=== PATIENT | female | born 1985 | race African-American/Black ===

== ENCOUNTER 2017-07-12 12:03 | Emergency (ER) | payer OTHER ==
[~2017-07-12] VITALS: Ht 162.6 cm; Wt 58.0 kg
[~2017-07-12 12:03] MED LIST: MEDR150D9 IM
[2017-07-12 12:09] VITALS: BP 146/78
== END 2017-07-12 18:02 | disposition left against medical advice (07) ==
LOC: ER 18:01
DX: N39.8 Other specified disorders of urinary system (principal); Z53.21 Procedure and treatment not carried out due to patient leaving prior to being seen by health care provider

== ENCOUNTER 2020-03-07 11:34 | Emergency (ER) | payer MEDICAID, OTHER ==
[~2020-03-07] VITALS: Ht 162.6 cm; Wt 70.0 kg
[2020-03-07 11:37] VITALS: BP 102/61
[2020-03-07] MEDS ORDERED: IBUPROFEN 600MG TABLET PO ONE (11:45)
== END 2020-03-07 13:47 | disposition home or self-care (01) ==
LOC: ER 11:34
DX: J02.9 Acute pharyngitis, unspecified (principal); Z98.890 Other specified postprocedural states
CPT/HCPCS: 87070; 87430; 99283

== ENCOUNTER 2020-04-12 10:59 | Emergency (ER) | payer MEDICAID ==
[~2020-04-12] VITALS: Ht 160 cm; Wt 71.0 kg
[2020-04-12] MEDS ORDERED: IBUPROFEN 600MG TABLET PO ONE (11:45)
[2020-04-12 11:50] VITALS: BP 94/61
== END 2020-04-12 12:15 | disposition home or self-care (01) ==
LOC: ER 10:59
DX: J02.9 Acute pharyngitis, unspecified (principal); Z79.899 Other long term (current) drug therapy; Z98.890 Other specified postprocedural states
CPT/HCPCS: 99282

== ENCOUNTER 2023-09-23 09:43 | Emergency (ER) | payer SELFPAY ==
[~2023-09-23] VITALS: Ht 162.6 cm; Wt 68.0 kg
[2023-09-23 09:45] VITALS: BP_DIAS 66; PULSE 91; RESP 16; TEMP 99; O2SAT 99
[2023-09-23] MEDS ORDERED: FLUT9.9S BOTHNSTRLS (12:06)
[2023-09-23] MEDS ORDERED: PSEU120T56 MT (12:07)
== END 2023-09-23 13:01 | disposition home or self-care (01) ==
LOC: ER 09:43
DX: J06.9 Acute upper respiratory infection, unspecified (principal); Z20.822 Contact with and (suspected) exposure to COVID-19
CPT/HCPCS: 99284; 71045; 87426; 87430; 87070; 87804 ×2; C9803